=== PATIENT | female | born 1955 | race Native Hawaiian/Other Pacific Islander ===

== ENCOUNTER 2017-02-12 09:31 | Outpatient (CLI) | payer BC | END 2017-02-12 19:40 | disposition home or self-care (01) | LOC: MAMMO 09:31 | DX: Z12.31 Encounter for screening mammogram for malignant neoplasm of breast (principal); Z13.820 Encounter for screening for osteoporosis; M85.88 Other specified disorders of bone density and structure, other site ==

== ENCOUNTER 2020-01-23 13:50 | Outpatient (CLI) | payer OTHER ==
[2020-01-23 14:13] LABS: PLATELET COUNT 302 K/uL (152-353)
[2020-01-23 14:39] LABS: POTASSIUM 4.5 mmol/L (3.6-5.2)
== END 2020-01-23 22:16 | disposition home or self-care (01) ==
LOC: LAB 13:50
PROVIDERS: ATTEND Nurse Practitioner Family
DX: Z00.00 Encounter for general adult medical examination without abnormal findings (principal); F41.8 Other specified anxiety disorders; E78.2 Mixed hyperlipidemia; E66.9 Obesity, unspecified; E55.9 Vitamin D deficiency, unspecified; D64.89 Other specified anemias; Z79.899 Other long term (current) drug therapy; E53.8 Deficiency of other specified B group vitamins
CPT/HCPCS: 80053; 80061; 82607; 83036; 84439; 84443; 84481; 85027

== ENCOUNTER 2021-04-04 12:20 | Outpatient (CLI) | payer OTHER | END 2021-04-04 19:17 | disposition home or self-care (01) | LOC: CT 12:20 | PROVIDERS: ATTEND Nurse Practitioner Family | DX: R41.3 Other amnesia (principal); S09.8XXA Other specified injuries of head, initial encounter; R47.9 Unspecified speech disturbances; Y92.9 Unspecified place or not applicable ==